=== PATIENT | female | born 2000 | race Caucasian/White ===

== ENCOUNTER → 2019-05-21 11:12 | Outpatient (BNVA) | payer SELFPAY | PROVIDERS: Family Provider Family Medicine; PCP Family Medicine; Visit Provider Family Medicine | DX: J02.9 Acute pharyngitis, unspecified (principal) | CPT/HCPCS: 87081; 87880 ==

== ENCOUNTER 2019-07-08 16:24 | Emergency (ER) | payer SELFPAY ==
[2019-07-08 16:28] VITALS: BP 128/75; PULSE 87; RESP 18; TEMP 36.7; O2SAT 100; BMI 30.4
--- NOTE | 2019-07-08 17:05 | XR_ITS ---
WS: [id number] XR chest 1V portable [id number] REASON FOR EXAM: dyspnea/cough FINDINGS: The cardiac silhouette is not enlarged. The lung park are well aerated. No pneumonia, pulmonary edema, pleural effusion, or mass effect. The hilum was were normal as well as the apices. No osseous abnormalities. XR/XR chest 1V portable [id number] IMPRESSION: Negative chest for acute findings.
--- NOTE | 2019-07-08 17:06 | ED_ITS ---
Documented by User: Barry Bowser DO 07/10/19 14:30 HPI - General Adult General: Chief complaint: General Medical Stated complaint: abnormal heart rate Time Seen by Provider: 07/08/19 16:35 History of Present Illness: HPI narrative: 18-year-old female comes in complaining of palpitations and irregular heartbeat that she has had for last several weeks last few days it is becoming increasingly more noticeable. She is a little chest discomfort with a couple of episodes as well. She describes it as feeling her heart is skipping a beat or pounding not really racing ever.'s not necessarily associated with any shortness of breath or diaphoresis. She does not drink large amounts of caffeine only 1 or 2 cans/day she does not use any decongestants no pseudoephedrine or phenylephrine. Denies use of any other stimulants. Onset (ago): week(s) Severity: moderate Quality: other (Pounding heartbeat) Pain Consistency: intermittent Relieving factors: none Exacerbating factors: other (Emotional stress) Associated symptoms: Reports chest pain; Deny dyspnea, malaise, nausea, rash or vomiting Review of Systems Const: Denies: fever, chills, body aches, change in appetite, fatigue or malaise ENMT: Denies: throat pain, ear pain, nasal discharge or nasal congestion Card: Reports: chest pain, irregular heart rhythm and other (Palpitations); Denies: edema, shortness of breath on exertion or shortness of breath when lying down Resp: Denies: shortness of breath, productive cough or non-productive cough GI: Denies: abdominal pain, nausea, vomiting, vomiting blood, coffee grounds in vomit, diarrhea, constipation, bloating, blood in stool or black tarry stool : Denies: flank pain, difficulty urinating, painful urination, urinary frequency or urinary urgency Skin/Breast: Denies: rash or itching PFSH ED PFSH: Social History Smoking and tobacco status: current every day smoker Alcohol intake: current Female Reproductive History: Date of last menstrual period: 06/18/19 Physical Exam Const: COMMON NORMALS: no apparent distress GENERAL APPEARANCE: cooperative and comfortable ORIENTATION/CONSCIOUSNESS: Yes awake, Yes oriented to person, Yes oriented to place and Yes oriented to time HENMT: COMMON NORMALS: normocephalic, head/scalp atraumatic, hearing grossly normal bilaterally, external ears normal, EAC's normal, TM's normal bilaterally, nasal mucous membranes and turbinates normal, moist oral mucous membranes and oropharynx normal HEAD & SCALP: normocephalic and atraumatic NOSE: nasal mucous membranes and turbinates normal EXTERNAL EAR: Yes external ears normal EXTERNAL AUDITORY CANAL: EAC's normal TYMPANIC MEMBRANE: TM's normal bilaterally Eye: COMMON NORMALS: PERRL, EOMs intact bilaterally, conjunctivae normal and no scleral icterus CONJUNCTIVA: Yes conjunctivae normal PUPIL: Yes PERRL Neck/C-Spine: COMMON NORMALS: full ROM, no lymphadenopathy, supple and no JVD Lymph: LYMPHATIC: no lymphadenopathy noted and no lymphedema noted Resp: COMMON NORMALS: normal respiratory effort, no retractions, no use of accessory muscles and clear to auscultation bilaterally AUSCULTATION: clear to auscultation bilaterally Cardio: COMMON NORMALS: no JVD, regular rate, regular rhythm and no murmurs RATE: regular rate RHYTHM: regular rhythm GI: COMMON NORMALS: soft to palpation and no hepatosplenomegaly AUSCULTATION: Yes normoactive bowel sounds PALPATION: Yes soft, No tender, No guarding and Yes no hepatosplenomegaly Extremity: COMMON NORMALS: normal to inspection, normal capillary refill, no clubbing, cyanosis or edema, no calf tenderness and no pedal edema Neuro: SENSORIUM/ORIENTATION: Yes oriented to person, Yes oriented to place and Yes oriented to time Skin: COMMON NORMALS: no rashes or lesions noted GENERAL SKIN EXAM: no rashes or lesions noted Course Vital Signs: Vital signs: Vital Signs Temperature 98.1 F 07/08/19 16:28 Pulse Rate 73 07/08/19 19:28 Respiratory Rate 16 07/08/19 19:28 Blood Pressure 119/68 07/08/19 19:28 Pulse Oximetry 100 07/08/19 19:28 MDM - General Adult MDM Narrative: Medical decision making narrative: Initially when I seen the patient discussed with her use of stimulants illicit drugs caffeine decongestants etc. that might exacerbate her symptoms. Suspect she is having PACs she will probably need a Holter monitor or some other further outside of the ER evaluation. Case turned over to Dr. Parviz at change of shift labs are pending Lab Data: Labs: Lab Results 07/08/19 07/08/19 07/08/19 Range/Units 17:20 17:20 17:20 WBC 10.5 (4.5-13.0) 10^3/ uL RBC 4.13 (4.1-5.3) 10^6/u L Hgb 13.1 (11.5-15.3) g/dL Hct 40.6 (37.0-47.0) % MCV 98.3 (81-99) fL MCH 31.7 (28.0-34.0) pg MCHC 32.3 (30.0-36.0) g/dL RDW 13.1 (12.1-15.1) % Plt Count 326 (130-400) 10^3/c mm MPV 9.7 (7.4-10.4) fL Neut % (Auto) 68.4 % Lymph % (Auto) 24.7 % [place] % (Auto) 5.5 % Eos % (Auto) 0.9 % Baso % (Auto) 0.3 % Neut # (Auto) 7.2 (1.8-8.0) 10^3/u L Lymph # (Auto) 2.6 (1.5-6.5) 10^3/u L [place] # (Auto) 0.6 (0.2-0.9) 10^3/u L Eos # (Auto) 0.1 (0.0-0.8) 10^3/u L Baso # (Auto) 0.0 (0.0-0.1) 10^3/u L Nucleated RBC % (a uto) 0 % Nucleated RBCs # 0.0 /100WBC Sodium 140 (136-145) mmol/L Potassium 4.2 (3.5-5.1) mmol/L Chloride 103 (98-107) mmol/L Carbon Dioxide 26 (22-29) mmol/L Anion Gap 15.2 (5-19) BUN 14 (6-20) mg/dL Creatinine 0.7 (0.5-0.9) mg/dL GFR Calculation 107.8 (90-130) mL/min Glucose 95 (65-115) mg/dL Calculated Osmolal ity 286 (285-295) mOsm/k g Calcium 10.0 (8.5-10.5) mg/dL Magnesium 2.5 H (1.7-2.2) mg/dL Total Bilirubin 0.2 (0.15-1.2) mg/dL AST 13 (0-32) U/L ALT 13 (0-33) U/L Alkaline Phosphata se 94 (35-105) IU/L Total Protein 7.9 (6.6-8.7) g/dL Albumin 4.7 (3.5-5.2) g/dL Globulin 3.2 (1.3-4.6) g/dL TSH 2.89 (0.27-4.20) uIU/ mL Free T4 1.18 (0.93-1.60) ng/d L HCG, Qual Negative (Negative) EKG Data^: EKG 1: Computer generated interpretation: Chest X-Ray 07/08/19 17:05 IMPRESSION: Negative chest for acute findings. Discharge Plan Discharge Patient Disposition: Home, Self-Care Clinical Impression: Palpitations Condition: Stable Prescriptions: No Action ibuprofen 200 mg Tablet 200 - 800 mg PO PRN RF: 0 Discharge Orders: Discharge Order (Routine); Ordered 07/08/19 Ordered By: Martha Jean Baptiste Referrals: Juan J Lucero MD [Primary Care Provider] - 1-3 days Jessica Oviedo MD [Physician] - 1-3 days Discharge Diet: Advance as tolerated Discharge Activity: Increase activity as tolerated Patient Instructions: Palpitations (ED) Activity Restrictions/Additional Instructions: Please return to the ER immediately for any of the signs or symptoms listed on your discharge instruction sheets, worsening/changing of your symptoms, you are not getting better as quickly as expected, or for ANY other cause or concerns. Return to the ER for chest pain, shortness of breath, you pass out or nearly pass out, or for any other cause for concern. Be certain to follow-up with your doctor and with Dr. Oviedo as soon as possible for further evaluation and care. Stand Alone Forms: Work/School Release Discharge Date/Time: 07/08/19 19:30 Coding Level of Care Code ED [employer] Manager for Chg Fwd Exam Comprehensive Documented by User: Martha Jean Baptiste 07/08/19 20:53 HPI - General Adult General: Chief complaint: General Medical Stated complaint: abnormal heart rate Time Seen by Provider: 07/08/19 16:35 PFSH ED PFSH: Social History Smoking and tobacco status: current every day smoker Alcohol intake: current Course 2 Vital Signs: Vital signs: Vital Signs Temperature 98.1 F 07/08/19 16:28 Pulse Rate 73 07/08/19 19:28 Respiratory Rate 16 07/08/19 19:28 Blood Pressure 119/68 07/08/19 19:28 Pulse Oximetry 100 07/08/19 19:28 MDM - General Adult MDM Narrative: Medical decision making narrative: 1800 - Case turned over to me at change of shift from Dr. Bowser. Please see his note for his history, physical exam and medical decision-making notes. Patient states she is feeling better now ready to go home. EKG is unremarkable. She was advised not to take any stimulants, illicit drugs, increased caffeine or any other things that could exacerbate her heart palpitations. The patient wants to follow-up with cardiology as an outpatient for further and definitive examination. Lab Data: Labs: Lab Results 07/08/19 07/08/19 07/08/19 Range/Units 17:20 17:20 17:20 WBC 10.5 (4.5-13.0) 10^3/ uL RBC 4.13 (4.1-5.3) 10^6/u L Hgb 13.1 (11.5-15.3) g/dL Hct 40.6 (37.0-47.0) % MCV 98.3 (81-99) fL MCH 31.7 (28.0-34.0) pg MCHC 32.3 (30.0-36.0) g/dL RDW 13.1 (12.1-15.1) % Plt Count 326 (130-400) 10^3/c mm MPV 9.7 (7.4-10.4) fL Neut % (Auto) 68.4 % Lymph % (Auto) 24.7 % [place] % (Auto) 5.5 % Eos % (Auto) 0.9 % Baso % (Auto) 0.3 % Neut # (Auto) 7.2 (1.8-8.0) 10^3/u L Lymph # (Auto) 2.6 (1.5-6.5) 10^3/u L [place] # (Auto) 0.6 (0.2-0.9) 10^3/u L Eos # (Auto) 0.1 (0.0-0.8) 10^3/u L Baso # (Auto) 0.0 (0.0-0.1) 10^3/u L Nucleated RBC % (a uto) 0 % Nucleated RBCs # 0.0 /100WBC Sodium 140 (136-145) mmol/L Potassium 4.2 (3.5-5.1) mmol/L Chloride 103 (98-107) mmol/L Carbon Dioxide 26 (22-29) mmol/L Anion Gap 15.2 (5-19) BUN 14 (6-20) mg/dL Creatinine 0.7 (0.5-0.9) mg/dL GFR Calculation 107.8 (90-130) mL/min Glucose 95 (65-115) mg/dL Calculated Osmolal ity 286 (285-295) mOsm/k g Calcium 10.0 (8.5-10.5) mg/dL Magnesium 2.5 H (1.7-2.2) mg/dL Total Bilirubin 0.2 (0.15-1.2) mg/dL AST 13 (0-32) U/L ALT 13 (0-33) U/L Alkaline Phosphata se 94 (35-105) IU/L Total Protein 7.9 (6.6-8.7) g/dL Albumin 4.7 (3.5-5.2) g/dL Globulin 3.2 (1.3-4.6) g/dL TSH 2.89 (0.27-4.20) uIU/ mL Free T4 1.18 (0.93-1.60) ng/d L HCG, Qual Negative (Negative) Imaging Data^: CXR: My impression: No acute cardiopulmonary findings. EKG Data^: EKG 1: Attestation: I personally reviewed and interpreted this EKG as follows: EKG interpretation date: 07/08/19 EKG interpretation time: 18:20 Interpretation: Normal sinus rhythm at 70 beats a minute, no acute ST or T wave changes. Computer generated interpretation: Chest X-Ray 07/08/19 17:05
[2019-07-08 17:35] LABS: Basophils % 0.3 %; Eosinophils # 0.1 10^3/uL (0.0-0.8); Eosinophils % 0.9 %; Hematocrit 40.6 % (37.0-47.0); Hemoglobin 13.1 g/dL (11.5-15.3); Lymphocytes # 2.6 10^3/uL (1.5-6.5); Lymphocytes % 24.7 %; Mean Corpuscular HGB Conc 32.3 g/dL (30.0-36.0); Mean Corpuscular Hemoglobin 31.7 pg (28.0-34.0); Mean Corpuscular Volume 98.3 fL (81-99); Mean Platelet Volume 9.7 fL (7.4-10.4); Monocytes # 0.6 10^3/uL (0.2-0.9); Monocytes % 5.5 %; Neutrophils # 7.2 10^3/uL (1.8-8.0); Neutrophils % 68.4 %; Nucleated Red Blood Cells % 0 %; Platelet Count 326 10^3/cmm (130-400); Red Blood Count 4.13 10^6/uL (4.1-5.3); Red Cell Distribution Width 13.1 % (12.1-15.1); White Blood Count 10.5 10^3/uL (4.5-13.0)
--- NOTE | 2019-07-08 17:40 | ECG_ITS ---
Measurements Intervals [place] Rate: 70 P: 52 SC: 156 QRS: 51 QRSD: 80 T: 42 QT: 398 QTc: 431 SINUS RHYTHM WITH SINUS ARRHYTHMIA No previous ECG available for comparison Electronically Signed On 07-09-2019 16:55:12 CDT by Maggie Rodriguez M.D. [email or web address]
[2019-07-08 18:09] VITALS: BP 121/55; PULSE 69; RESP 18; O2SAT 100
[2019-07-08 18:12] LABS: Alanine Aminotransferase 13 U/L (0-33); Albumin Level 4.7 g/dL (3.5-5.2); Alkaline Phosphatase 94 IU/L (35-105); Anion Gap 15.2 (5-19); Aspartate Amino Transferase 13 U/L (0-32); Blood Urea Nitrogen 14 mg/dL (6-20); Carbon Dioxide 26 mmol/L (22-29); Chloride 103 mmol/L (98-107); Free T4 Free Thyroxine 1.18 ng/dL (0.93-1.60); Globulin 3.2 g/dL (1.3-4.6); Glomerular Filtration Rate 107.8 mL/min (90-130); Glucose 95 mg/dL (65-115); Magnesium 2.5 mg/dL (1.7-2.2); Osmolality Calculated 286 mOsm/kg (285-295); Potassium 4.2 mmol/L (3.5-5.1); Sodium 140 mmol/L (136-145); Thyroid Stimulating Hormone 2.89 uIU/mL (0.27-4.20); Total Bilirubin 0.2 mg/dL (0.15-1.2); Total Protein 7.9 g/dL (6.6-8.7)
[2019-07-08 18:40] LABS: HCG, Serum Qual Negative (Negative)
[2019-07-08 19:28] VITALS: BP 119/68; PULSE 73; RESP 16; O2SAT 100
--- NOTE | 2019-07-09 15:03 | DCPLANNER ---
manager payer had message to schedule a follow up appointment for patient with [facility]. manager payer called [facility], spoke with Radha, gave clinic patients information. A follow up appointment was scheduled for Monday, July 15, 2019 at 1:[address] Oviedo. manager payer called patient to inform patient of the scheduled appointment. manager payer called [phone] was told that there was no one there by that name. manager payer then called [phone], patients father, a voicemail was left for patient to return case management manager phone call.
--- NOTE | 2019-07-10 10:04 | DCPLANNER ---
gas operation manager tried calling patient again today, 07.10.19, unable to speak with patient, a voicemail was left on phone number [phone] for patient to return pillowcase turner phone call.
--- NOTE | 2019-07-12 15:23 | DCPLANNER ---
clinical support manager called [facility] and cancelled appointment scheduled for 07.15.19, due to not being able to reach patient to inform patient of the scheduled appointment. clinical support manager left several voicemails, then when trying to call patient today, the phone went to busy signal.
== END 2019-07-08 19:30 | disposition home or self-care (01) ==
PROVIDERS: Family Medicine; Emergency Provider Emergency Medicine; Family Provider Family Medicine; PCP Family Medicine
DX: R00.2 Palpitations (principal); F17.210 Nicotine dependence, cigarettes, uncomplicated
CPT/HCPCS: 12345; 71045; 80053; 83735; 84439; 84443; 84703; 85025; 93005; 99281; 99283

== ENCOUNTER → 2020-02-02 12:32 | Outpatient (BNVA) | payer BC, SELFPAY | PROVIDERS: Family Provider Family Medicine; PCP Family Medicine; Visit Provider Nurse Practitioner Family | DX: Z20.828 Contact with and (suspected) exposure to other viral communicable diseases (principal) | CPT/HCPCS: 87635 ==

== ENCOUNTER → 2020-03-26 13:38 | Outpatient (BNVA) | payer BC, SELFPAY | PROVIDERS: Family Provider Family Medicine; PCP Family Medicine; Visit Provider Family Medicine | DX: R53.83 Other fatigue (principal); Z86.2 Personal history of diseases of the blood and blood-forming organs and certain disorders involving the immune mechanism | CPT/HCPCS: 83540; 85025 ==

== ENCOUNTER → 2020-07-28 11:48 | Outpatient (BNVA) | payer BC, SELFPAY | PROVIDERS: Family Provider Family Medicine; PCP Family Medicine; Visit Provider Family Medicine | DX: F31.62 Bipolar disorder, current episode mixed, moderate (principal); N39.0 Urinary tract infection, site not specified | CPT/HCPCS: 81003; 87086 ==

== ENCOUNTER → 2020-08-25 13:58 | Outpatient (BNVA) | payer BC, SELFPAY | PROVIDERS: Family Provider Family Medicine; PCP Family Medicine; Visit Provider Family Medicine | DX: M79.641 Pain in right hand (principal); R60.9 Edema, unspecified | CPT/HCPCS: 73130 ==